=== PATIENT | female | born 1965 | race Native Hawaiian/Other Pacific Islander ===

== ENCOUNTER → 2021-01-24 | Outpatient (CLI) | payer OTHER ==
[~2021-01-24] MED LIST: CLARITIN10 M1 PO; CLONIDINE0.2 MG PO; HYDR10TA47 PO; LEVO0.1224 PO; LISITAB PO; LOPRESSOR100 MG PO; PEPCID40 MG PO; TOPAMAX50 MG PO; TRAM50TA PO
[2021-01-24 09:20] LABS: PLATELET COUNT 266 K/uL (152-353)
[2021-01-24 09:38] LABS: POTASSIUM 3.8 mmol/L (3.6-5.2)
== END ==
LOC: RESP 08:54
PROVIDERS: ATTEND Internal Medicine Cardiovascular Disease
DX: Z79.899 Other long term (current) drug therapy (principal)
CPT/HCPCS: 36415; 80053; 80061; 84443; 85027

== ENCOUNTER 2021-08-23 13:36 | Outpatient (CLI) | payer OTHER | END 2021-08-23 18:53 | disposition home or self-care (01) | LOC: RESP 13:36 | PROVIDERS: ATTEND Nurse Practitioner Family | DX: R06.02 Shortness of breath (principal) ==

== ENCOUNTER 2022-09-22 11:54 | Outpatient (CLI) | payer OTHER | END 2022-09-22 19:16 | disposition home or self-care (01) | LOC: RAD 11:54 | PROVIDERS: ATTEND Family Medicine | DX: M54.89 Other dorsalgia (principal) ==